=== PATIENT | female | born 1995 | race Two or more races ===

== ENCOUNTER → 2021-03-05 | Outpatient (CLI) | payer OTHER ==
--- NOTE | 2021-03-05 14:30 | PFTRPT ---
Height: 68.00 Inches Weight: 189.00 Lbs BSA: 2.00 Diagnosis: ASTHMA DATE: 03/05/2021 ORDERING PHYSICIAN: BETHANY Rdz Pre and post bronchodilator studies have excellent technical quality. Forced vital capacity is normal. FEV1 is in proportion. Obstructive index is therefore normal. Expiratory limit of the flow-volume loop is normal. No significant bronchodilator response is identified. Total lung capacity is normal. Residual volume is in proportion. Diffusing capacity is not able to be measured. Airway resistance and conductance are normal. IMPRESSION: Normal study. Diffusing capacity not ordered. MTDD
== END ==
LOC: M CARPUL 13:37
PROVIDERS: ATTEND Physician Assistant
DX: J45.909 Unspecified asthma, uncomplicated (principal)